=== PATIENT | male | born 1950 | race African-American/Black ===

== ENCOUNTER 2020-04-10 20:48 | Emergency (ER) | payer MEDICARE ==
[~2020-04-10] VITALS: Ht 182.9 cm; Wt 91.0 kg
[2020-04-10] MEDS ORDERED: CLONIDINE 0.2MG TABLET PO ONE (22:00)
[2020-04-10 23:05] LABS: *AMPHETAMINES SCREEN URINE NEGATIVE (NEGATIVE); *BARBITURATES SCREEN URINE NEGATIVE (NEGATIVE); *BENZODIAZEPINES SCREEN URINE NEGATIVE (NEGATIVE); *COCAINE SCREEN URINE NEGATIVE (NEGATIVE); METHADONE URINE SCREEN NEGATIVE (NEGATIVE); OPIATES URINE SCREEN NEGATIVE (NEGATIVE); PHENCYCLIDINE URINE SCREEN PRESUMTIVE POSITIVE (NEGATIVE)
[2020-04-10 23:06] LABS: CANNABINOID URINE SCREEN PRESUMTIVE POSITIVE (NEGATIVE)
[2020-04-11 00:08] LABS: BASOPHILS % 0.4 % (0.0-2.0); HEMATOCRIT. 37.7 % (42.0-52.0); LYMPHOCYTES % 33.7 % (20.0-50.0); MEAN CORPUSCULAR HEMOGLOBIN 34.1 pg (28.0-32.0); MEAN CORPUSCULAR VOLUME 99.4 fL (80.0-94.0); MEAN PLATELET VOLUME 9.2 fl (7.4-10.4); MONOCYTES % 11.1 % (2.0-8.0); NEUTROPHILS % 46.8 % (40.0-76.0); PLATELET 130 x1000/uL (130-400); RED CELL DISTRIBUTION WIDTH 13.2 % (11.6-14.6)
[2020-04-11 00:15] LABS: CHLORIDE 108 mEq/L (98-107)
[2020-04-11 00:19] LABS: ETHANOL BLOOD < 10 mg/dL
[2020-04-11 02:45] VITALS: BP 192/110
[2020-04-11] MEDS ORDERED: LABETALOL 5MG/ML SYR 20 MG/4 ML SYRINGE IV SCH (02:45)
[2020-04-11] MEDS ORDERED: AMLODIPINE 10MG TABLET PO ONE (03:00)
== END 2020-04-11 04:18 | disposition left against medical advice (07) ==
LOC: ER 20:48
DX: F16.129 Hallucinogen abuse with intoxication, unspecified (principal); I16.1 Hypertensive emergency
CPT/HCPCS: 36415; 71045; 80053; 80305; 80320; 82962; 83880; 84484; 85025; 93005; 99285; J3490; G0480